=== PATIENT | female | born 1980 | race Caucasian/White ===

== ENCOUNTER → 2017-02-05 | Outpatient (CLI) | payer OTHER ==
[2016-06-04 18:52] VITALS: BP 105/62
[~2017-02-05] MED LIST: PRED20TA PO; PROAIR HFA8.5 GM INH
--- NOTE | 2017-02-05 13:20 | KCIC ---
Three views left ankle INDICATION: Reason For Study Reason: LEFT ANKLE PAIN LATERAL ASPECT FOR 3 WEEKS. / Spl. Instructions: Injured doing leg extensions / History: FINDINGS: The ankle mortise is intact. The talar dome is well centered within the tibial plafond. There is no widening of the tibiofibular syndesmosis. Ankle joint space is preserved. Subtalar joint is intact. Soft tissues are within normal limits. IMPRESSION: Normal left ankle. Electronically signed by: Johnathan Schneider (Feb 05, 2017 13:19:06)
== END | disposition home or self-care (01) ==
LOC: KCIC 12:05
PROVIDERS: ATTEND Family Medicine
DX: M25.572 Pain in left ankle and joints of left foot (principal)
CPT/HCPCS: 73610

== ENCOUNTER → 2017-03-01 | Outpatient (CLI) | payer OTHER ==
[2016-06-04 18:52] VITALS: BP 105/62
--- NOTE | 2017-03-01 11:07 | KCIC ---
PROCEDURE CT head without contrast. HISTORY Headaches. TECHNIQUE CT of the head was performed without intravenous contrast. One or more of the following individualized dose reduction techniques were utilized for this examination: 1. Automated exposure control; 2. Adjustment of the mA and/or kV according to patient size; 3. Use of iterative reconstruction technique. FINDINGS There is no intracranial hemorrhage. Peralta-white differentiation is preserved. The ventricles are normal in size and position. The orbits, paranasal sinuses, temporal bones and calvarium are unremarkable in their included portions. IMPRESSION - No acute intracranial findings. Electronically signed by: Johnathan Montenegro (March 01, 2017 11:06:00)
== END | disposition home or self-care (01) ==
LOC: KCIC CT 10:22
PROVIDERS: ATTEND Family Medicine
DX: G43.909 Migraine, unspecified, not intractable, without status migrainosus (principal)
CPT/HCPCS: 70450

== ENCOUNTER → 2018-03-20 | Outpatient (CLI) | payer OTHER | END | disposition home or self-care (01) | LOC: KCIC 09:59 | DX: M25.561 Pain in right knee (principal); M25.562 Pain in left knee | CPT/HCPCS: 73562 ==